=== PATIENT | male | born 1965 | race Caucasian/White ===

== ENCOUNTER 2016-07-04 00:27 | Emergency (ER) | payer BC, OTHER ==
[~2016-07-04] VITALS: Ht 180.3 cm; Wt 80.0 kg
[~2016-07-04 00:27] MED LIST: BACL20TA PO; DICL1GEL28 EXT; GABA600T PO; IBUP-1428 PO; LEVO25TA5 PO; MELATAB2 PO; PRLSR20 PO
[2016-07-04 00:28] VITALS: TEMP 37.2; Ht 180.3 cm; Wt 80.0 kg
[2016-07-04 01:12] LABS: CALCIUM 8.5 mg/dl (8.5-10.1); CREATININE 0.94 mg/dl (0.60-1.40); POTASSIUM 3.8 mmol/L (3.5-5.1)
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
[2016-07-04 08:38] VITALS: BP 137/82; PULSE 105; O2SAT 96
== END 2016-07-04 08:38 | disposition home or self-care (01) ==
LOC: EDBD 00:27 → C.EDB 00:28
DX: F10.129 Alcohol abuse with intoxication, unspecified (principal); F17.200 Nicotine dependence, unspecified, uncomplicated; Z79.899 Other long term (current) drug therapy